=== PATIENT | female | born 1985 | race Caucasian/White ===

== ENCOUNTER 2018-06-01 00:53 | Emergency (ER) | payer MEDICAID ==
[2018-06-01] MEDS ORDERED: Sodium Chloride 0.9% 250 ML IV ONE (01:15)
[2018-06-01] MEDS ORDERED: Sodium Chloride 0.9% 1,000 ML IV ONE (01:19)
--- NOTE | 2018-06-01 01:21 | ED Physician Chart ---
ED Chief Complaint/HPI - Patient Information Date Seen:: 06/01/18 Time Seen:: 01:16 Chief Complaint:: nvd History of Present Illness:: 32 yr old female who smoked the concentrated marijuana liquid called the wax and now with difficulty talking nvd Allergies:: Allergies Allergy/AdvReac Type Severity Reaction Status Date / Time No Known Allergies Allergy Verified 06/01/18 01:12 Vitals:: Vital Signs - 8 hr 06/01/18 01:05 Temp 98.3 F HR 78 RR 18 BP 111/75 O2 Sat % 99 ED Review of Systems - Review of Systems GI: Nausea, Vomiting, Diarrhea G/U: No dysuria Musculoskeletal: No bone or joint pain Endocrine: No polyuria Hematopoietic: No bruising Allergic/Immuno: No urticaria Neurological: No syncope ED Septic Shock - . Is Septic Shock (SBP<90, OR Lactate>4 mmol\L) present?: No - <6hrs of presentation: Vital Signs: Vital Signs - 8 hr 06/01/18 01:05 Temp 98.3 F HR 78 RR 18 BP 111/75 O2 Sat % 99 ED Reassessment (Disposition) - Reassessment Reassessment:: thc abuse with nvd and trouble vocalizing - Diagnosis Diagnosis:: as above - Aftercare/Follow up Instructions Aftercare/Follow-Up Instructions:: Counseled pt regarding lab results/diagnosis & need follow up - Patient Disposition Discharge/Transfer:: Home Condition at Disposition:: Stable
[2018-06-01 01:34] LABS: % BASOPHILS 0.4 % (0.0-2.0); % EOSINOPHILS 1.2 % (0.0-5.0); % LYMPHOCYTES 27.1 % (20.0-50.0); % MONOCYTES 4.3 % (2.0-10.0); EOSINOPHILE ABSOLUTE 0.1 Th/cmm (0.1-0.4); HEMATOCRIT 40.6 % (41.0-60); HEMOGLOBIN 13.3 gm/dL (12-16); LYMPHOCYTE ABSOLUTE 1.9 Th/cmm (1.5-3.0); MEAN CELL VOLUME 92.3 fl (81-100); MEAN CORPUSCULAR HEMOGLOBIN 30.1 pg (27.0-31.0); MEAN CORPUSCULAR HGB CONC 32.7 pg (28.0-36.0); MEAN PLATELET VOLUME 8.2 fl; MONOCYTE ABSOLUTE 0.3 Th/cmm (0.3-1.0); NEUTROPHILE ABSOLUTE 4.7 Th/cmm (1.8-8.0); PLATELET COUNT 287 Th/cmm (150-400)
[2018-06-01 01:50] LABS: ALB/GLOB RATIO 1.5 (1.0-1.8); ALBUMIN 4.2 gm/dL (3.7-5.3); ALKALINE PHOSPHATASE 64 U/L (34-104); ANION GAP 12.7 (7.0-16.0); BILIRUBIN,TOTAL 0.4 mg/dL (0.3-1.0); BUN - UREA NITROGEN 18 mg/dL (7-25); CALCIUM SERUM 9.4 mg/dL (8.6-10.3); CARBON DIOXIDE 25.7 mEq/L (21.0-31.0); CHLORIDE 102 mEq/L (98-107); GFR AFRICAN-AMERICAN > 60.0 ml/min (>90); GFR NON AFRICAN-AMERICAN > 60.0 ml/min; GLUCOSE 135 mg/dL (70-105); POTASSIUM SERUM 3.4 mEq/L (3.5-5.1); SGOT 15 U/L (13-39); SGPT/ALT 10 U/L (7-52); SODIUM SERUM 137 mEq/L (136-145); TOTAL PROTEIN,SERUM 7.1 gm/dL (6.0-8.3)
[2018-06-01] MEDS ORDERED: Potassium Chloride 20 mEq ER Tab PO ONE ×2 (02:22→02:25)
== END 2018-06-01 03:21 | disposition home or self-care (01) ==
LOC: ER 00:53
DX: F12.10 Cannabis abuse, uncomplicated (principal); R11.2 Nausea with vomiting, unspecified; R19.7 Diarrhea, unspecified
CPT/HCPCS: 36415-UA; 80053-TC; 84703-TC; 85025-TC; J7030; J7070; Z7502; Z7610